=== PATIENT | male | born 1995 | race Caucasian/White ===

== ENCOUNTER 2025-01-14 23:50 | Emergency (ER) | payer BC, SELFPAY ==
[2025-01-15 00:03] VITALS: BP 141/80
[2025-01-15 00:16] VITALS: BP 121/83
[2025-01-15] MEDS: PERCOCET 5/325 2 TABLET PO (00:49)
[2025-01-15] MEDS: TENIVAC 0.5 ML IM (01:04)
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
[2025-01-15 03:02] VITALS: BP 113/67
== END 2025-01-15 03:38 | disposition home or self-care (01) ==
LOC: EMR 23:50
PROVIDERS: EMERGENCY PHYSICIAN Student in an Organized Health Care Education/Training Program
DX: T23.201A Burn of second degree of right hand, unspecified site, initial encounter (principal); T22.121A Burn of first degree of right elbow, initial encounter; X08.8XXA Exposure to other specified smoke, fire and flames, initial encounter; Z23 Encounter for immunization
CPT/HCPCS: 99283; 90471; 90714